=== PATIENT | female | born 1935 | race Caucasian/White ===

== ENCOUNTER 2016-09-23 18:20 | Inpatient (IN) | payer OTHER, MEDICAID ==
[~2016-09-23] VITALS: Ht 157.5 cm; Wt 63.5 kg
[2016-09-23 18:50] VITALS: BP_SYST 125
[2016-09-23 19:30] VITALS: BP_SYST 110
[2016-09-23] MEDS ORDERED: VORT10TA PO (19:35)
[2016-09-23] MEDS ORDERED: TEMA7.5C PO (19:35)
[2016-09-23] MEDS ORDERED: TRIA1CAP53 PO (19:35)
[2016-09-23] MEDS ORDERED: SIMV20TA6 PO (19:35)
[2016-09-23] MEDS ORDERED: NACL 0.9% 1,000 ML IV SCH (19:45)
[2016-09-23] MEDS ORDERED: POTASSIUM CHLORIDE 20 MEQ TAB.PRT.SR PO ONE (19:45)
[2016-09-23] MEDS ORDERED: KCL 20 mEq in 100 mL (PREMIX) 100 ML IV ONE (19:45)
[2016-09-23] MEDS ORDERED: POTASSIUM CHLORIDE 10 MEQ TAB.PRT.SR PO ONE (19:45)
[2016-09-23 20:35] LABS: BASOPHILS % (AUTO) 0.2 % (0.0-2.0); HEMATOCRIT 35.8 % (36-48); HEMOGLOBIN 12.3 g/dL (12.0-16.0); LYMPHOCYTES # (AUTO) 1.5 K/uL (1.0-5.5); LYMPHOCYTES % (AUTO) 9.8 % (20.5-51.5); MEAN CORPUSCULAR HEMOGLOBIN 31 pg (27-31); MEAN CORPUSCULAR HGB CONC 34 % (32-36); MEAN CORPUSCULAR VOLUME 89 fL (79.0-98.0); MONOCYTES # (AUTO) 1.2 K/uL (0.0-1.0); MONOCYTES % (AUTO) 7.7 % (1.7-9.3); NEUTROPHILS # (AUTO) 12.9 K/uL (1.8-7.7); NEUTROPHILS % (AUTO) 82.3 % (40.0-70.0); RED BLOOD CELL COUNT(AUTO) 4.01 MIL/uL (4.2-6.2); RED CELL DISTRIBUTION WIDTH 13.4 % (9.0-15.0); WHITE BLOOD COUNT (AUTO) 15.6 K/uL (4.8-10.8)
[2016-09-23 20:39] LABS: ANION GAP 5 (5-15); CALCIUM 9.1 mg/dL (8.4-11.0); CREATININE 0.83 mg/dL (0.55-1.30); GLUCOSE 129 mg/dL (70-99); UREA NITROGEN, BLOOD 20 mg/dL (8-21)
[2016-09-23 20:57] LABS: TOTAL BILIRUBIN 0.7 mg/dL (0.0-1.0)
[2016-09-23 20:58] LABS: ALANINE AMINOTRANSFERASE 22 U/L (12-78); ALBUMIN 2.5 g/dL (3.4-4.8); AMYLASE 33 U/L (0-100); ASPARTATE AMINOTRANSFERASE 26 U/L (10-37); CREATINE KINASE, TOTAL 188 U/L (26-192); LIPASE 170 U/L (73-393); THYROID STIMULATING HORMONE 0.76 uIu/mL (0.34-4.82); TOTAL PROTEIN, SERUM 6.8 g/dL (6.4-8.3); URIC ACID 6.7 mg/dL (2.4-7.0)
[2016-09-23 21:19] LABS: PLATELET COUNT (AUTO) 221 K/uL (130-430)
[2016-09-23 22:00] LABS: POTASSIUM 2.3 mmol/L (3.5-5.1)
[2016-09-23 22:01] LABS: CHLORIDE 82 mmol/L (98-107); SODIUM SERUM 120 mmol/L (136-145)
[2016-09-23 22:02] LABS: ERYTHROCYTE SEDIMENTATION RATE 86 MM/HR (0-20)
[2016-09-23] MEDS: SIMVASTATIN 20 MG TABLET PO SCH (22:04)
[2016-09-24] MEDS: TEMAZEPAM 7.5 MG CAPSULE PO PRN (00:06)
[2016-09-24 01:21] VITALS: BP_SYST 120
[2016-09-24] MEDS: HYDROcodone/ACETAMIN 7.5-325 MG TAB PO PRN ×3 (03:38→23:12)
[2016-09-24 04:00] VITALS: BP_SYST 123
[2016-09-24 04:50] VITALS: BP_SYST 123
[2016-09-24 07:35] LABS: BASOPHILS % (AUTO) 0.2 % (0.0-2.0); LYMPHOCYTES # (AUTO) 1.4 K/uL (1.0-5.5)
[2016-09-24 07:45] LABS: EOSINOPHILS % (AUTO) 0.1 % (0.0-4.0); HEMATOCRIT 32.1 % (36-48); HEMOGLOBIN 10.9 g/dL (12.0-16.0); LYMPHOCYTES % (AUTO) 8.7 % (20.5-51.5); MEAN CORPUSCULAR HEMOGLOBIN 31 pg (27-31); MEAN CORPUSCULAR HGB CONC 34 % (32-36); MEAN CORPUSCULAR VOLUME 90 fL (79.0-98.0); MONOCYTES # (AUTO) 0.7 K/uL (0.0-1.0); MONOCYTES % (AUTO) 4.7 % (1.7-9.3); NEUTROPHILS # (AUTO) 13.7 K/uL (1.8-7.7); NEUTROPHILS % (AUTO) 86.3 % (40.0-70.0); PLATELET COUNT (AUTO) 231 K/uL (130-430); RED BLOOD CELL COUNT(AUTO) 3.56 MIL/uL (4.2-6.2); RED CELL DISTRIBUTION WIDTH 13.6 % (9.0-15.0); WHITE BLOOD COUNT (AUTO) 15.8 K/uL (4.8-10.8)
[2016-09-24 07:49] LABS: ANION GAP 4 (5-15); CALCIUM 8.5 mg/dL (8.4-11.0); CHLORIDE 91 mmol/L (98-107); CREATININE 0.78 mg/dL (0.55-1.30); GLUCOSE 121 mg/dL (70-99); POTASSIUM 3.5 mmol/L (3.5-5.1); SODIUM SERUM 127 mmol/L (136-145); TOTAL BILIRUBIN 0.5 mg/dL (0.0-1.0); UREA NITROGEN, BLOOD 16 mg/dL (8-21)
[2016-09-24 07:50] LABS: ALANINE AMINOTRANSFERASE 20 U/L (12-78); ALBUMIN 2.1 g/dL (3.4-4.8); ASPARTATE AMINOTRANSFERASE 20 U/L (10-37); TOTAL PROTEIN, SERUM 6.1 g/dL (6.4-8.3)
[2016-09-24 08:02] LABS: CREATINE KINASE, TOTAL 108 U/L (26-192); URIC ACID 5.5 mg/dL (2.4-7.0)
[2016-09-24] MEDS ORDERED: NON-FORMULARY MEDICATION (Vortioxetine Hydrobromide (Brintellix) 10 MG) PO SCH (09:00)
[2016-09-24] MEDS: KCL 20 mEq in D5NS 1000 mL 1,000 ML IV SCH ×2 (10:13→20:41)
[2016-09-24 12:11] VITALS: BP_SYST 112
[2016-09-24 16:00] VITALS: BP_SYST 112
[2016-09-24] MEDS ORDERED: CRAN500T PO (16:17)
[2016-09-24] MEDS ORDERED: CRANBERRY FRUIT 500 MG PO SCH (16:45)
[2016-09-24] MEDS ORDERED: TRINTELIX PO ONE (17:15)
[2016-09-24] MEDS ORDERED: CRANBERRY 500 MG PO ONE (17:15)
[2016-09-24 17:26] LABS: BILIRUBIN,URINE NEGATIVE (NEGATIVE); BLOOD, URINE 2+ (NEGATIVE); CLARITY/URINE CLEAR (CLEAR); COLOR,URINE YELLOW (YELLOW); GLUCOSE,URINE NEGATIVE (NEGATIVE); KETONES,URINE NEGATIVE (NEGATIVE); LEUKOCYTE ESTERASE ,URINE NEGATIVE (NEGATIVE); NITRITE, URINE NEGATIVE (NEGATIVE); PROTEIN URINE NEGATIVE (NEGATIVE); UROBILINOGEN,URINE 0.2 (0.2-1.0)
[2016-09-24 17:40] LABS: BACTERIA,URINE FEW /HPF (None Seen); WBC,URINE 0-3 /HPF (0-3)
[2016-09-24 17:42] LABS: MUCUS,URINE None Seen /LPF (None Seen)
[2016-09-24 19:50] VITALS: BP_SYST 138
[2016-09-24] MEDS: SIMVASTATIN 20 MG TABLET PO SCH (20:41)
[2016-09-25 00:02] VITALS: BP_SYST 122
[2016-09-25 07:20] LABS: ANION GAP 5 (5-15); CALCIUM 8.4 mg/dL (8.4-11.0); CHLORIDE 95 mmol/L (98-107); CREATININE 0.62 mg/dL (0.55-1.30); GLUCOSE 124 mg/dL (70-99); POTASSIUM 3.7 mmol/L (3.5-5.1); SODIUM SERUM 134 mmol/L (136-145); UREA NITROGEN, BLOOD 7 mg/dL (8-21)
[2016-09-25 07:26] LABS: BASOPHILS % (AUTO) 0.1 % (0.0-2.0); EOSINOPHILS % (AUTO) 0.1 % (0.0-4.0); HEMATOCRIT 33.4 % (36-48); HEMOGLOBIN 11.4 g/dL (12.0-16.0); LYMPHOCYTES # (AUTO) 1.9 K/uL (1.0-5.5); LYMPHOCYTES % (AUTO) 11.4 % (20.5-51.5); MEAN CORPUSCULAR HEMOGLOBIN 31 pg (27-31); MEAN CORPUSCULAR HGB CONC 34 % (32-36); MEAN CORPUSCULAR VOLUME 91 fL (79.0-98.0); MONOCYTES % (AUTO) 6.3 % (1.7-9.3); NEUTROPHILS # (AUTO) 13.4 K/uL (1.8-7.7); NEUTROPHILS % (AUTO) 82.1 % (40.0-70.0); PLATELET COUNT (AUTO) 302 K/uL (130-430); RED BLOOD CELL COUNT(AUTO) 3.66 MIL/uL (4.2-6.2); RED CELL DISTRIBUTION WIDTH 13.3 % (9.0-15.0); WHITE BLOOD COUNT (AUTO) 16.3 K/uL (4.8-10.8)
[2016-09-25 07:29] LABS: ALANINE AMINOTRANSFERASE 19 U/L (12-78); ALBUMIN 2.1 g/dL (3.4-4.8); ASPARTATE AMINOTRANSFERASE 18 U/L (10-37); TOTAL BILIRUBIN 0.5 mg/dL (0.0-1.0); TOTAL PROTEIN, SERUM 6.1 g/dL (6.4-8.3)
[2016-09-25 08:49] VITALS: BP_SYST 149
[2016-09-25] MEDS: TRINTELLIX 10 MG PO SCH (08:53)
[2016-09-25] MEDS: KCL 20 mEq in D5NS 1000 mL 1,000 ML IV SCH (08:53)
[2016-09-25] MEDS: CRANBERRY 500 MG PO SCH (08:57)
[2016-09-25] MEDS: HYDROcodone/ACETAMIN 7.5-325 MG TAB PO PRN ×2 (09:09→21:18)
[2016-09-25 12:11] VITALS: BP_SYST 141
[2016-09-25] MEDS ORDERED: MAGNESIUM CITRATE 300 ML ORAL SOLUTION PO ONE (14:30)
[2016-09-25] MEDS ORDERED: MELOXICAM 7.5 MG TABLET PO SCH (14:30)
[2016-09-25] MEDS ORDERED: MELOXICAM 7.5 MG TABLET PO ONE (16:15)
[2016-09-25 16:36] VITALS: BP_SYST 136
[2016-09-25 18:12] LABS: ANTI NUCLEAR AB WITH REFLEX Negative (Negative)
[2016-09-25 19:00] VITALS: BP_SYST 131
[2016-09-25 20:00] VITALS: BP_SYST 131
[2016-09-25] MEDS: SIMVASTATIN 20 MG TABLET PO SCH (21:14)
[2016-09-25] MEDS: TEMAZEPAM 7.5 MG CAPSULE PO PRN (21:17)
[2016-09-25] MEDS ORDERED: DOCUSATE SODIUM 100 MG CAPSULE PO ONE (23:30)
[2016-09-25] MEDS: DIGOXIN 0.5 MG/2 ML AMP IVP SCH (23:38)
[2016-09-26 01:49] VITALS: BP_SYST 138
[2016-09-26 04:43] VITALS: BP_SYST 152
[2016-09-26] MEDS: HYDROcodone/ACETAMIN 7.5-325 MG TAB PO PRN ×2 (05:28→16:53)
[2016-09-26] MEDS: DIGOXIN 0.5 MG/2 ML AMP IVP SCH ×3 (05:30→18:11)
[2016-09-26 07:14] LABS: BASOPHILS # (AUTO) 0.1 K/uL (0.0-0.2); BASOPHILS % (AUTO) 0.9 % (0.0-2.0); EOSINOPHILS % (AUTO) 0.2 % (0.0-4.0); HEMATOCRIT 33.2 % (36-48); HEMOGLOBIN 11.2 g/dL (12.0-16.0); LYMPHOCYTES # (AUTO) 1.6 K/uL (1.0-5.5); LYMPHOCYTES % (AUTO) 10.4 % (20.5-51.5); MEAN CORPUSCULAR HEMOGLOBIN 31 pg (27-31); MEAN CORPUSCULAR HGB CONC 34 % (32-36); MEAN CORPUSCULAR VOLUME 92 fL (79.0-98.0); MONOCYTES # (AUTO) 0.8 K/uL (0.0-1.0); NEUTROPHILS # (AUTO) 12.9 K/uL (1.8-7.7); NEUTROPHILS % (AUTO) 83.5 % (40.0-70.0); PLATELET COUNT (AUTO) 381 K/uL (130-430); RED BLOOD CELL COUNT(AUTO) 3.62 MIL/uL (4.2-6.2); RED CELL DISTRIBUTION WIDTH 13.6 % (9.0-15.0); WHITE BLOOD COUNT (AUTO) 15.4 K/uL (4.8-10.8)
[2016-09-26 07:23] LABS: ALANINE AMINOTRANSFERASE 18 U/L (12-78); ALBUMIN 2.1 g/dL (3.4-4.8); ANION GAP 6 (5-15); ASPARTATE AMINOTRANSFERASE 20 U/L (10-37); CALCIUM 8.7 mg/dL (8.4-11.0); CHLORIDE 95 mmol/L (98-107); CREATININE 0.55 mg/dL (0.55-1.30); GLUCOSE 114 mg/dL (70-99); POTASSIUM 3.8 mmol/L (3.5-5.1); SODIUM SERUM 132 mmol/L (136-145); TOTAL BILIRUBIN 0.6 mg/dL (0.0-1.0); TOTAL PROTEIN, SERUM 6.5 g/dL (6.4-8.3); UREA NITROGEN, BLOOD 6 mg/dL (8-21)
[2016-09-26 07:42] VITALS: BP_SYST 123
[2016-09-26] MEDS: CRANBERRY 500 MG PO SCH (08:58)
[2016-09-26] MEDS: DOCUSATE SODIUM 100 MG CAPSULE PO SCH ×2 (08:58→21:05)
[2016-09-26] MEDS: TRINTELLIX 10 MG PO SCH (08:58)
[2016-09-26] MEDS: MELOXICAM 7.5 MG TABLET PO SCH (08:58)
[2016-09-26] MEDS ORDERED: CARVEDILOL 6.25 MG TABLET (COREG) PO ONE (10:30)
[2016-09-26] MEDS ORDERED: ENOXAPARIN SODIUM 40 MG/0.4 ML SYRINGE SUBCUT ONE (10:30)
[2016-09-26] MEDS ORDERED: HYDROCORTISONE SOD SUCC 100 MG/2 ML VIAL IVP ONE (12:30)
[2016-09-26 12:45] VITALS: BP_SYST 124
[2016-09-26 16:30] VITALS: BP_SYST 128
[2016-09-26 20:22] VITALS: BP_SYST 112
[2016-09-26] MEDS ORDERED: SENNOSIDES 8.6 MG TABLET PO SCH (21:00)
[2016-09-26] MEDS: HYDROCORTISONE SOD SUCC 100 MG/2 ML VIAL IVP SCH (21:04)
[2016-09-26] MEDS: SIMVASTATIN 20 MG TABLET PO SCH (21:05)
[2016-09-26] MEDS: CARVEDILOL 6.25 MG TABLET (COREG) PO SCH (21:05)
[2016-09-27] VITALS: BP_SYST 133
[2016-09-27 04:13] VITALS: BP_SYST 139
[2016-09-27 07:30] LABS: HEMATOCRIT 35.3 % (36-48); HEMOGLOBIN 11.8 g/dL (12.0-16.0); MEAN CORPUSCULAR HEMOGLOBIN 31 pg (27-31); MEAN CORPUSCULAR HGB CONC 33 % (32-36); MEAN CORPUSCULAR VOLUME 92 fL (79.0-98.0); PLATELET COUNT (AUTO) 487 K/uL (130-430); RED BLOOD CELL COUNT(AUTO) 3.85 MIL/uL (4.2-6.2); RED CELL DISTRIBUTION WIDTH 13.8 % (9.0-15.0); WHITE BLOOD COUNT (AUTO) 13.3 K/uL (4.8-10.8)
[2016-09-27 07:41] LABS: ALANINE AMINOTRANSFERASE 17 U/L (12-78); ALBUMIN 2.2 g/dL (3.4-4.8); ANION GAP 5 (5-15); ASPARTATE AMINOTRANSFERASE 16 U/L (10-37); CALCIUM 9.3 mg/dL (8.4-11.0); CHLORIDE 96 mmol/L (98-107); CHOLESTEROL 114 mg/dL (<200); CREATININE 0.73 mg/dL (0.55-1.30); GLUCOSE 127 mg/dL (70-99); HDL CHOLESTEROL 38 mg/dL (>55); LDL CHOLESTEROL 60 mg/dL (<100); POTASSIUM 4.7 mmol/L (3.5-5.1); SODIUM SERUM 132 mmol/L (136-145); TOTAL BILIRUBIN 0.5 mg/dL (0.0-1.0); TOTAL PROTEIN, SERUM 6.8 g/dL (6.4-8.3); TRIGLYCERIDES 100 mg/dL (30-150); UREA NITROGEN, BLOOD 16 mg/dL (8-21)
[2016-09-27 08:00] VITALS: BP_SYST 130
[2016-09-27] MEDS: HYDROCORTISONE SOD SUCC 100 MG/2 ML VIAL IVP SCH (08:53)
[2016-09-27] MEDS: DOCUSATE SODIUM 100 MG CAPSULE PO SCH (08:55)
[2016-09-27] MEDS: TRINTELLIX 10 MG PO SCH (08:55)
[2016-09-27] MEDS: CRANBERRY 500 MG PO SCH (08:57)
[2016-09-27] MEDS ORDERED: ENOXAPARIN SODIUM 40 MG/0.4 ML SYRINGE SUBCUT SCH (09:00)
[2016-09-27] MEDS ORDERED: DIGOXIN 0.25 MG TABLET PO SCH (09:00)
[2016-09-27] MEDS: MELOXICAM 7.5 MG TABLET PO SCH (09:06)
[2016-09-27] MEDS: CARVEDILOL 6.25 MG TABLET (COREG) PO SCH (09:07)
[2016-09-27 09:40] LABS: ATYPICAL LYMPHOCYTES % 0 % (0-0); BAND % (MANUAL) 4 % (0-6); BASOPHILS % (MANUAL) 0 % (0-2); EOSINOPHILS % (MANUAL) 0 % (0-7); LYMPHOCYTES % (MANUAL) 6 % (20-46); MONOCYTES % (MANUAL) 6 % (0-11)
[2016-09-27 11:38] VITALS: BP_SYST 145
[2016-09-27 14:52] VITALS: BP_SYST 122
[2016-09-27 15:29] VITALS: BP_SYST 101
[2016-09-27] MEDS ORDERED: AMIODARONE HCL 200 MG TABLET PO ONE (16:15)
[2016-09-27] MEDS ORDERED: APIXABAN 2.5 MG TABLET PO SCH (21:00)
[2016-09-27] MEDS ORDERED: AMIODARONE HCL 200 MG TABLET PO SCH (21:00)
[2016-09-28] MEDS ORDERED: DIGOXIN 0.25 MG TABLET PO SCH (09:00)
== END 2016-09-27 21:40 | DRG 308 ==
LOC: STU 18:20
PROVIDERS: ADMIT Internal Medicine; ATTEND Internal Medicine
DX: I48.91 Unspecified atrial fibrillation (principal); E43 Unspecified severe protein-calorie malnutrition; E87.1 Hypo-osmolality and hyponatremia; E87.3 Alkalosis; M35.3 Polymyalgia rheumatica; E86.0 Dehydration; I95.1 Orthostatic hypotension; E87.6 Hypokalemia; E78.5 Hyperlipidemia, unspecified; I10 Essential (primary) hypertension; F32.9 Major depressive disorder, single episode, unspecified; F51.04 Psychophysiologic insomnia; F41.9 Anxiety disorder, unspecified; K59.04 Chronic idiopathic constipation; M19.90 Unspecified osteoarthritis, unspecified site; D72.829 Elevated white blood cell count, unspecified; G89.29 Other chronic pain; M54.9 Dorsalgia, unspecified; W19.XXXA Unspecified fall, initial encounter; T50.2X5A Adverse effect of carbonic-anhydrase inhibitors, benzothiadiazides and other diuretics, initial encounter; Y93.89 Activity, other specified; Y92.89 Other specified places as the place of occurrence of the external cause; Y99.8 Other external cause status; Z87.891 Personal history of nicotine dependence; Z88.2 Allergy status to sulfonamides; Z82.49 Family history of ischemic heart disease and other diseases of the circulatory system; Z88.8 Allergy status to other drugs, medicaments and biological substances; Z90.710 Acquired absence of both cervix and uterus; Z68.25 Body mass index [BMI] 25.0-25.9, adult
CPT/HCPCS: 36415; 71010; 80053; 80061; 81000-TC; 82150-TC; 82550-TC; 83690-TC; 83735-TC; 83880; 83930-TC; 83935-TC; 84302-TC; 84443-TC; 84484; 84550-TC; 85007; 85025; 85027; 85379; 85651-TC; 86038; 86162; 86431; 93005; 93306; 97110-GP; 97116-GP; 97530-GP; J1160; J1650; J1720; J3480; J7030